=== PATIENT | female | born 1965 | race Caucasian/White ===

== ENCOUNTER 2019-08-02 12:14 | Day surgery (SDC) | payer OTHER ==
[2019-08-02] MEDS ORDERED: ONDANSETRON 4 MG INJ (12:57)
[2019-08-02] MEDS ORDERED: PROPOFOL 40 ML (15:06)
== END 2019-08-02 16:17 | disposition home or self-care (01) ==
LOC: GIL 12:14
DX: Z12.11 Encounter for screening for malignant neoplasm of colon (principal); D12.5 Benign neoplasm of sigmoid colon; K64.8 Other hemorrhoids; K29.70 Gastritis, unspecified, without bleeding
CPT/HCPCS: 43239; 88305